=== PATIENT | male | born 1970 | race Caucasian/White ===

== ENCOUNTER 2020-12-05 23:03 | Emergency (ER) | payer MEDICAID ==
[~2020-12-05] VITALS: Ht 175.3 cm; Wt 81.8 kg
[2020-12-06] MEDS ORDERED: ketoconazole 2% cream 15gm TP ONE (00:15)
[2020-12-06] MEDS ORDERED: cephalexin 250mg capsule PO ONE (00:15)
[2020-12-06] MEDS ORDERED: ondansetron 4mg rapidly disintigrating tab PO ONE (00:15)
[2020-12-06] MEDS ORDERED: KETO15CR2 TOP (00:17)
[2020-12-06] MEDS ORDERED: CEPH750C9 PO (00:17)
[2020-12-06 00:44] VITALS: BP 140/65
== END 2020-12-06 00:46 | disposition home or self-care (01) ==
LOC: ER 23:04
DX: B35.3 Tinea pedis (principal); M79.672 Pain in left foot; M79.671 Pain in right foot; Z98.890 Other specified postprocedural states; Z72.89 Other problems related to lifestyle; Z88.0 Allergy status to penicillin; Z79.2 Long term (current) use of antibiotics
CPT/HCPCS: 99283; 99284

== ENCOUNTER 2020-12-06 23:56 | Emergency (ER) | payer MEDICAID ==
[~2020-12-06] VITALS: Ht 175.3 cm; Wt 81.8 kg
[~2020-12-06 23:56] MED LIST: CEPH750C9 PO; KETO15CR2 TOP
[2020-12-07] MEDS ORDERED: ibuprofen tablet 400 MG TABLET PO ONE (02:25)
[2020-12-07] MEDS ORDERED: acetaminophen 325mg tablet PO ONE (02:25)
[2020-12-07 02:54] VITALS: BP 109/79
== END 2020-12-07 03:40 | disposition home or self-care (01) ==
LOC: ER 23:59
DX: M79.671 Pain in right foot (principal); M79.672 Pain in left foot; Z98.890 Other specified postprocedural states; Z72.89 Other problems related to lifestyle; Z88.0 Allergy status to penicillin; Z79.2 Long term (current) use of antibiotics
CPT/HCPCS: 99283